=== PATIENT | male | born 1960 | race Caucasian/White ===

== ENCOUNTER 2022-07-31 13:47 | Emergency (ER) | payer OTHER, SELFPAY ==
[2022-07-31] VITALS (11 sets, daily range): BP systolic 113–130; BP diastolic 83–89; PULSE 76–83; RESP 20; TEMP 36.4; O2SAT 95–99
--- NOTE | 2022-07-31 14:03 | ED.GENADULT ---
HPI - General Adult General Time Seen by Provider: 14:03 Date Seen: 07/31/22 Chief complaint: Fall/Minor Trauma Stated complaint: Fell last night, Extreme pain in R lower ribs area Time Seen by Provider: 07/31/22 14:02 Source: patient, RN notes reviewed and old records reviewed Mode of arrival: ambulatory Limitations: no limitations History of Present Illness HPI narrative: Patient is a 62-year-old male referred to us from urgent care with severe left-sided chest wall pain and upper abdominal pain per report. Patient was in his kitchen last night slipped and hit the floor. He did not sleep overnight due to the pain. He is not having difficulty breathing, not short of breath. It only hurts to breathe if he takes a deep breath. He has noticed no blood in his urine or stool. No nausea or vomiting. He did not hit his head, no neck or back pain. He states he did not lose consciousness. He is a smoker, does admit to alcohol use. Alcohol use was involved in this incident. This happened last night. They did do a chest x-ray in urgent care with left rib views. This was negative. He was sent here for further evaluation and management. At this time he states he does not need any pain management. Related Data Home Medications Medication Instructions Recorded Confirmed No Known Home Medications 07/31/22 07/31/22 Allergies Allergy/AdvReac Type Severity Reaction Status Date / Time No Known Drug Allergies Allergy Verified 07/31/22 13:55 Review of Systems Status of ROS: Reports: 10 or more systems reviewed and unremarkable except as noted in History and below [facility] Medical History (Updated 07/31/22 @ 16:33 by Marilin Salazar MD) Abdominal pain Fall Side pain Social History Smoking Status: Current some day smoker What tobacco products do you use: cigarettes Do you use any of these nicotine containing products: None Second hand tobacco smoke exposure: No How often do you have a drink containing alcohol: 2-3 times a week How many standard drinks containing alcohol do you have on a typical day: 5 or 6 How often do you have six or more drinks on one occasion: Monthly AUDIT-C Alcohol total score: 7 Non-prescribed substance use: denies use service: No Exam Const: Vital Signs, click to edit/add: Vital Signs - 24 hr 07/31/22 13:55 07/31/22 14:09 07/31/22 13:56 Temperature 97.6 F Pulse Rate 80 Pulse Rate [Pulse Oximeter] 80 Respiratory Rate 20 Blood Pressure 130/83 Blood Pressure [Ri ght Upper Arm] 130/83 Pulse Oximetry 96 99 96 Oxygen Delivery Me thod Room Air 07/31/22 13:57 07/31/22 14:00 07/31/22 14:01 Temperature Pulse Rate 81 81 83 Pulse Rate [Pulse Oximeter] Respiratory Rate Blood Pressure 125/89 Blood Pressure [Ri ght Upper Arm] Pulse Oximetry 96 96 95 Oxygen Delivery Me thod 07/31/22 14:32 Temperature Pulse Rate Pulse Rate [Pulse Oximeter] Respiratory Rate Blood Pressure 113/85 Blood Pressure [Ri ght Upper Arm] Pulse Oximetry Oxygen Delivery Me thod Documenting provider has reviewed patient's vital signs: yes Common normals: no apparent distress, average body habitus, oriented x3, no limitations and alert General appearance: cooperative, comfortable and well kempt Other: Seems uncomfortable with movement. Does have noted bruising over his left lower anterolateral chest wall. No crepitus or step-off but is certainly tender in this area. HENMT: Common normals: normocephalic, head/scalp atraumatic, hearing grossly normal bilaterally, external ears normal, external nose normal, nasal mucous membranes and turbinates normal, moist oral mucous membranes, oropharynx normal, dentition normal and gingiva normal Head and scalp: normocephalic and atraumatic Nose: external nose normal and nasal mucous membranes and turbinates normal External ear: external ears normal Eye: Common normals: PERRL, EOMs intact bilaterally, conjunctivae normal and no scleral icterus Conjunctiva: conjunctiva(e) normal Pupil: PERRL Neck & C-Spine: Common normals: full ROM, no lymphadenopathy, supple, no meningeal signs, no JVD and thyroid normal Thyroid: thyroid normal Resp: Common normals: normal respiratory effort, no retractions, no use of accessory muscles and clear to auscultation bilaterally Auscultation: clear to auscultation bilaterally Cardio: Common normals: no JVD, regular rate, regular rhythm, S1 normal heart sound, S2 normal heart sound, no gallops, no clicks and no murmurs Rate: regular rate Rhythm: regular rhythm Heart sounds: S1 normal and S2 normal GI: Common normals: Normal to inspection, nondistended, normoactive bowel sounds present, soft to palpation, no hepatosplenomegaly and no masses Palpation: soft and no hepatosplenomegaly Other: Some left upper quadrant tenderness just below the left rib margin. Really no rebound or guarding. Back & Pelvis: Common normals: thoracic and lumbar spine normal to inspection Extremity: Other: Upper extremities and lower extremities mobile, did ambulate in here. No lower extremity edema. No focal wounds or traumatic changes to his extremities. Neuro: Common normals: oriented x3 Sensorium/orientation: alert Meningeal signs: no meningeal signs Psych: Appearance: well kempt Course Course Hospital Course: Patient declines pain management at this time. He will be monitored on pulse oximetry. We will proceed with chest abdomen pelvis CT with IV contrast. He has significant bruising and pain along the left lower rib margin, did review that the spleen is in this area and does have some upper abdominal tenderness on palpation. He is not hemodynamically unstable but do feel we need to fine any potential traumatic etiology. Will also get baseline labs including a urinalysis. He will let us know if he changes mind about pain management. Reevaluation(s) Reevaluation #1: Reviewed with patient that his CTs are showing rib fractures on the left side at rib 10 and 11. There is no other acute findings. Labs are reassuring. He would like something for pain. He really does not take anything usually more than Tylenol or ibuprofen. Remotely with an injury he sounds as if he is maybe tolerated oxycodone. We will give a dose of oxycodone prior to discharge. Time: 16:23 Vital Signs Vital signs: Initial Vital Signs Temperature 97.6 F 07/31/22 13:55 Temperature Source Temporal Artery Scan 07/31/22 13:55 Pulse Rate 80 07/31/22 13:55 Pulse Rhythm 07/31/22 13:55 Respiratory Rate 20 07/31/22 13:55 Blood Pressure 130/83 07/31/22 13:55 Blood Pressure Mean 98 07/31/22 13:55 Blood Pressure Position Supine 07/31/22 13:55 Pulse Oximetry 96 07/31/22 13:55 Oxygen Delivery Method 07/31/22 13:55 Vital Signs Temperature 97.6 F 07/31/22 13:55 Pulse Rate 80 07/31/22 13:55 Respiratory Rate 20 07/31/22 13:55 Blood Pressure 130/83 07/31/22 13:55 Pulse Oximetry 96 07/31/22 13:55 Oxygen Delivery Method 07/31/22 13:55 Temperature 97.6 F 07/31/22 13:55 Pulse Rate 83 07/31/22 14:01 Respiratory Rate 20 07/31/22 13:55 Blood Pressure 113/85 07/31/22 14:32 Pulse Oximetry 99 07/31/22 14:09 Oxygen Delivery Method 07/31/22 13:55 Medical Decision Making Lab Data Lab results reviewed: Yes I reviewed the patient's lab results Labs: Lab Results 07/31/22 07/31/22 07/31/22 Range/Units 14:10 14:17 14:17 WBC 11.92 H (4.50-11.00) K/uL RBC 4.63 (4.30-5.90) m/uL Hgb 14.5 (13.5-17.5) gm/dL Hct 42.9 (37.0-53.0) % MCV 93 (80-100) fL MCH 31 (26-34) pg MCHC 34 (32-36) gm/dL RDW Coeff of Shanice 12.6 (11.5-15.5) % Plt Count 223 (140-440) K/uL Neut % (Auto) 78.3 H (42.0-72.0) % Lymph % (Auto) 14.3 L (20-44) % Daniels % (Auto) 6.5 (0.0-11.0) % Eos % (Auto) 0.5 (0.0-7.0) % Baso % (Auto) 0.3 (0.0-3.0) % Neut # (Auto) 9.30 H (1.7-7.0) K/uL Lymph # (Auto) 1.70 (0.90-2.90) K/uL Daniels # (Auto) 0.80 (0.00-0.90) K/UL Eos # (Auto) 0.10 (0.00-0.50) K/uL Baso # (Auto) 0.00 (0.00-0.30) K/uL Sodium 139 (135-149) mmol/L Potassium 4.7 (3.6-5.1) mmol/L Chloride 108 (96-114) mmol/L Carbon Dioxide 25 (20-32) mmol/L BUN 15 (7-30) mg/dL Creatinine 0.8 (0.5-1.5) mg/dL Estimated Creat Clear 82.47 Estimated GFR 99 ml/min Glucose 104 (60-115) mg/dL Calcium 8.7 (8.4-10.6) mg/dL Total Bilirubin 0.7 (0.1-1.5) mg/dL AST 29 (12-35) U/L ALT 26 (4-50) U/L Alkaline Phosphatase 71 (40-150) U/L Total Protein 7.1 (6.0-8.3) g/dL Albumin 4.4 (3.3-5.0) g/dL Urine Color Yellow (Yellow) Urine Appearance Clear (Clear) Urine pH 5.5 (5.0-8.5) Ur Specific [place] 1.020 (1.000-1.030) Urine Protein Negative (Negative) Urine Glucose (UA) Negative (Negative) Urine Ketones Negative (Negative) Urine Blood Negative (Negative) Urine Nitrite Negative (Negative) Urine Bilirubin Negative (Negative) Urine Urobilinogen 0.2 (0.2-1.0) Ur Leukocyte Esterase Negative (Negative) Urine RBC 0-2 (0-2) Urine WBC 0-2 (0-5) Ur Squamous Epith Cells Few (None-Few) Urine Bacteria None (None) Imaging Data Chest x-ray: Attestation: I have reviewed the pertinent imaging results. Radiologist's impression: Patient: JUAN ALEXANDER Facility:?[facility] Patient ID:?[id number] Site Patient ID:?[id number]. Site :?[id number] Study:?XRay Chest Left 2V Ribs w/ CXR-07/31/2022 12:00:40 PM Ordering Physician:Elton Singh Final Report: INDICATION: Fall. TECHNIQUE: Chest and left rib 3 views. IMPRESSION: Marker left 11th rib. No signs of displaced rib fracture or osseous lesion. No pneumothorax. Lungs are clear. Normal heart size and pulmonary vascularity. Dictated by Hossein Stoo MD @ 07/31/2022 12:06:59 PM (Electronic Signature) CT Chest/Ab/Pelvis: Attestation: I have reviewed the pertinent imaging results. Radiologist's impression: Patient: JUAN ALEXANDER Facility:?[facility] Patient ID:?[id number] Site Patient ID:?[id number]. Site :?[id number] Study:?CT Chest/Abd/Pelvis W/ISOVUE 370 83CC-07/31/2022 3:12:49 PM Ordering Physician:Veena Gaston Final Report: INDICATION: Fall with left flank pain. TECHNIQUE: CT chest, abdomen and pelvis acquired with 83 cc Isovue 370 IV contrast. COMPARISON: None. FINDINGS: CHEST: Cardiovascular structures: Heart size is normal. Mild prominence of the ascending aorta measuring 4 cm. Aberrant right subclavian artery. Mediastinum and andrew: No mass or adenopathy. Lungs and pleura: Mild bibasilar atelectasis. Remainder of the lungs and pleural spaces are clear. No pneumothorax. Chest wall and axilla: No mass or adenopathy. Bones: Acute nondisplaced fractures in the posterior left 10th and 11th ribs. ABDOMEN AND PELVIS: Liver: Unremarkable. No sign of acute injury. Gallbladder and bile ducts: Unremarkable. Pancreas: Unremarkable. Spleen: Unremarkable. No sign of acute injury. Adrenal glands: Unremarkable. Kidneys: Unremarkable. GI tract: Unremarkable. Vascular structures: Unremarkable. Mesenteric arteries are patent. Lymph nodes: Unremarkable. Miscellaneous: Unremarkable. No free air or significant free fluid. Pelvic Organs: Unremarkable. Bones: No acute fracture or dislocation. Severe degenerative disc spondylosis at L2-3. [id number] IMPRESSION: Acute nondisplaced fractures in the posterior left 10th and 11th ribs. No other sign of acute injury or significant disease in the chest, abdomen or pelvis. Please note that all CT scans at this facility use dose modulation, iterative reconstruction, and/or weight-based dosing when appropriate to reduce radiation dose to as low as reasonably achievable. Dictated by Serafin Whitlock MD @ 07/31/2022 3:54:36 PM (Electronic Signature) Critical Care Time Critical Care Time Critical Care Time: No Discharge Plan Discharge Clinical Impression: Rib fractures, Fall Patient Disposition: Home, Self-Care Condition: Stable Instructions: Rib Fracture (ED) Additional Instructions: Use splinting technique with movement coughing or sneezing to help with pain. Tylenol 1000 mg 3 times a day baseline for pain control. Can use ibuprofen per bottle directions as needed for further pain control. For more severe pain, have provided 10 pills of 5 mg oxycodone, 1 pill every 8 hours as needed. If you need more pain pills, you will have to follow up in clinic. Activity as tolerated. Can provide work for note as I have written. If you develop fever, difficulty breathing or shortness of breath, please seek re-evaluation. Activity Level: Activity as Tolerated Prescriptions: No Action No Known Home Medications Follow Up/Referrals: Provider,Not a Local [Primary Care Provider] - Stand Alone Forms: [employer] Info Instructions
--- NOTE | 2022-07-31 14:09 | CRLHL7_ITS ---
For Patients: As a result of the Cures Act, medical imaging exams and procedure reports are released immediately into your electronic medical record. You may view this report before your referring provider. If you have questions, please contact your health care provider. INDICATION: Fall with left flank pain. TECHNIQUE: CT chest, abdomen and pelvis acquired with 83 cc Isovue 370 IV contrast. COMPARISON: None. FINDINGS: CHEST: Cardiovascular structures: Heart size is normal. Mild prominence of the ascending aorta measuring 4 cm. Aberrant right subclavian artery. Mediastinum and andrew: No mass or adenopathy. Lungs and pleura: Mild bibasilar atelectasis. Remainder of the lungs and pleural spaces are clear. No pneumothorax. Chest wall and axilla: No mass or adenopathy. Bones: Acute nondisplaced fractures in the posterior left 10th and 11th ribs. ABDOMEN AND PELVIS: Liver: Unremarkable. No sign of acute injury. Gallbladder and bile ducts: Unremarkable. Pancreas: Unremarkable. Spleen: Unremarkable. No sign of acute injury. Adrenal glands: Unremarkable. Kidneys: Unremarkable. GI tract: Unremarkable. Vascular structures: Unremarkable. Mesenteric arteries are patent. Lymph nodes: Unremarkable. Miscellaneous: Unremarkable. No free air or significant free fluid. Pelvic Organs: Unremarkable. Bones: No acute fracture or dislocation. Severe degenerative disc spondylosis at L2-3. [id number] IMPRESSION: Acute nondisplaced fractures in the posterior left 10th and 11th ribs. No other sign of acute injury or significant disease in the chest, abdomen or pelvis. Please note that all CT scans at this facility use dose modulation, iterative reconstruction, and/or weight-based dosing when appropriate to reduce radiation dose to as low as reasonably achievable. Dictated by Serafin Whitlock MD @ 07/31/2022 3:54:36 PM (Electronically Signed)
[2022-07-31 14:28] LABS: Basophils Percent Auto 0.3 % (0.0-3.0); Eosinophils Percent Auto 0.5 % (0.0-7.0); Hematocrit 42.9 % (37.0-53.0); Hemoglobin* 14.5 gm/dL (13.5-17.5); Immature Granulocytes Pct Auto 0.1 %; Lymphocytes Percent Auto 14.3 % (20-44); Mean Corpuscular HGB Conc 34 gm/dL (32-36); Mean Corpuscular Hemoglobin 31 pg (26-34); Mean Corpuscular Volume 93 fL (80-100); Monocytes Percent Auto 6.5 % (0.0-11.0); Neutrophils Percent Auto 78.3 % (42.0-72.0); Platelet Count* 223 K/uL (140-440); RDW Coefficient of Variation % 12.6 % (11.5-15.5); Red Blood Count 4.63 m/uL (4.30-5.90); White Blood Count* 11.92 K/uL (4.50-11.00)
[2022-07-31 14:31] LABS: Slide Review Reflex No
[2022-07-31 14:41] LABS: Albumin* 4.4 g/dL (3.3-5.0); Chloride* 108 mmol/L (96-114)
[2022-07-31 14:42] LABS: Potassium* 4.7 mmol/L (3.6-5.1); Sodium* 139 mmol/L (135-149)
[2022-07-31 14:44] LABS: Bilirubin Total* 0.7 mg/dL (0.1-1.5); Carbon Dioxide* 25 mmol/L (20-32); Creatinine* 0.8 mg/dL (0.5-1.5); Est. Creatinine Clearance* 82.47; Estimated Glomerular Filt Rate 99 ml/min
[2022-07-31 14:45] LABS: Alanine Aminotransferase* 26 U/L (4-50); Alkaline Phosphatase* 71 U/L (40-150); Aspartate Amino Transferase* 29 U/L (12-35); Blood Urea Nitrogen* 15 mg/dL (7-30); Calcium* 8.7 mg/dL (8.4-10.6); Glucose* 104 mg/dL (60-115); Total Protein* 7.1 g/dL (6.0-8.3)
[2022-07-31 15:43] LABS: Appearance Urine Clear (Clear); Bilirubin Urine Negative (Negative); Blood Urine Negative (Negative); Color Urine Yellow (Yellow); Glucose Urine Negative (Negative); Ketones Urine Negative (Negative); Leukocyte Esterase Urine Negative (Negative); Nitrite Urine Negative (Negative); Protein Urine Negative (Negative); Urobilinogen Urine 0.2 (0.2-1.0); pH Urine 5.5 (5.0-8.5)
[2022-07-31 15:54] LABS: RBC Urine 0-2 (0-2); Squamous Epithelial Cell Urine Few (None-Few); WBC Urine 0-2 (0-5)
[2022-07-31] MEDS: OXYCODONE 5 MG TABLET PO (17:00)
== END 2022-07-31 16:44 | disposition home or self-care (01) ==
PROVIDERS: Emergency Provider Family Medicine
DX: S22.42XA Multiple fractures of ribs, left side, initial encounter for closed fracture (principal); W01.0XXA Fall on same level from slipping, tripping and stumbling without subsequent striking against object, initial encounter
CPT/HCPCS: 36415; 71260; 74177; 80053; 81001; 85025; 94761; 99284; 99285; A9270; Q9967